=== PATIENT | female | born 2005 | race Two or more races ===

== ENCOUNTER 2025-09-25 23:46 | Observation (INO) | payer OTHER ==
[~2025-09-25] VITALS: Ht 162.6 cm; Wt 108.9 kg
--- NOTE | 2025-09-26 01:54 | DVH ---
EXAM: US OB ULTRASOUND COMP GTR 14 WKS HISTORY: No care/Term . TECHNIQUE: Multiple real-time grayscale images of the gravid uterus with duplex Doppler color flow and M-mode spectral analysis. COMPARISON: None available. FINDINGS: IUP single live fetus at 36 w and 4 d average ultrasound age (AUA) based on composite averages of the BPD, head circumference, abdominal circumference, and femur length Age based on (early ultrasound): Not available. MEASUREMENTS: BPD: 9.12 cm GA: 37 w 0 d HC: 32.73 cm GA: 37 w 1 d AC: 31.8 cm GA: 35 w 5 d FL: 7.12 cm GA: 36 w 3 d Estimated weight 2877 +/- 431 grams; 6 lbs 5 oz, 12th percentile. heart rate 134 beats per minute AZUCENA 8.4 cm, MVP 3.7 ANATOMIC SURVEY: Cephalic Presentation Anterior placenta without previa or abruption Cervix is not visualized and not assessed on this exam. 4-chamber heart, stomach, right kidney, left kidney, and bladder are within normal limits. [email or web address] IMPRESSION: 1. IUP single live fetus at 36 w 4 d AUA corresponding to an ADRIANE of 10/20/2025. 2. No abnormality detected.
[2025-09-26] MEDS ORDERED: PREN-96 PO (02:21)
[2025-09-26 02:24] LABS: Urine Protein, UAD TRACE (Negative)
[2025-09-26 02:26] LABS: Hematocrit 40.9 % (36.0-46.0); Hemoglobin 14.0 g/dL (12.2-16.2); Mean Corpuscular Hemoglobin 29.3 pg (28.0-32.0); Mean Corpuscular Volume 85.6 fL (80.0-100.0); Nucleated Red Blood Cells % 0.0 %
[2025-09-26 02:41] LABS: INR 0.89 (0.9-1.15); Partial Thromboplastin Time 24.8 SEC (24.5-34.5); Prothrombin Time 9.5 sec (9.3-11.8)
[2025-09-26 02:43] LABS: Amphetamine Screen, Urine Neg (NEGATIVE); Barbiturate Scree,Urine Neg (NEGATIVE); Benzodiazephine Screen, Urine Neg (NEGATIVE); Cannabinoid Screen, Urine Neg (NEGATIVE); Cocaine Screen, Urine Neg (NEGATIVE); Opiate Scree,Urine Neg (NEGATIVE); Phencyclidine Screen, Urine Neg (NEGATIVE)
[2025-09-26 02:46] LABS: Alanine Aminotransferase 14 U/L (7-40); Albumin 3.8 g/dL (3.2-4.8); Anion Gap 10 (5-15); BUN/Creatinine Ratio 12.2 (10.0-20.0); Blood Urea Nitrogen 10 mg/dL (9-23); Calcium 8.9 mg/dL (8.7-10.4); Carbon Dioxide 21 mmol/L (20-31); Glucose 97 mg/dL (74-106); Potassium 4.0 mmol/L (3.5-5.1); Sodium 138 mmol/L (136-145); Total Protein 6.7 g/dL (5.7-8.2)
[2025-09-26 02:51] LABS: Alkaline Phosphatase 118 U/L (46-116); Bilirubin, Total 0.2 mg/dL (0.2-1.0); Chloride 107 mmol/L (98-107)
--- NOTE | 2025-09-26 07:21 | DVHDS2 ---
Discharge Summary Date of Admission Sep 25, 2025 at 23:46 Date of Discharge: Sep 26, 2025 Admitting Diagnosis 39 + wks rule out labor Wounds: none Labs/Diagnostic Data: Laboratory Results Test 09/26/25 02:04 09/26/25 02:00 09/26/25 01:28 White Blood Count 9.9 10^3/uL (4.4-10.8) Red Blood Count 4.78 10^6/uL (4.0-5.20) Hemoglobin 14.0 g/dL (12.2-16.2) Hematocrit 40.9 % (36.0-46.0) Mean Corpuscular Volume 85.6 fL (80.0-100.0) Mean Corpuscular Hemoglobin 29.3 pg (28.0-32.0) Mean Corpuscular Hemoglobin Concent 34.3 g/dL (32.0-36.0) Red Cell Distribution Width 13.5 % (11.8-14.3) Platelet Count 288 10^3/uL (140-450) Mean Platelet Volume 8.4 fL (6.9-10.8) Neutrophils (%) (Auto) 62.2 % (37.0-80.0) Lymphocytes (%) (Auto) 29.6 % (10.0-50.0) Monocytes (%) (Auto) 6.9 % (0.0-12.0) Eosinophils (%) (Auto) 0.5 % (0.0-7.0) Basophils (%) (Auto) 0.8 % (0.0-2.0) Neutrophils # (Auto) 6.1 10 ^3/uL (1.6-8.6) Lymphocytes # (Auto) 2.9 10 ^3/uL (0.4-5.4) Monocytes # (Auto) 0.7 10 ^3/uL (0-1.3) Eosinophils # (Auto) 0.1 10 ^3/uL (0-0.8) Basophils # (Auto) 0.1 10 ^3/uL (0-0.2) Nucleated Red Blood Cells 0.0 % Prothrombin Time 9.5 sec (9.3-11.8) Prothrombin Time INR 0.89 (0.9-1.15) Activated Partial Thromboplast Time 24.8 SEC (24.5-34.5) Sodium Level 138 mmol/L (136-145) Potassium Level 4.0 mmol/L (3.5-5.1) Chloride Level 107 mmol/L (98-107) Carbon Dioxide Level 21 mmol/L (20-31) Anion Gap 10 (5-15) Blood Urea Nitrogen 10 mg/dL (9-23) Creatinine 0.82 mg/dL (0.550-1.02) Glomerular Filtration Rate Calc 104 mL/min (>90) BUN/Creatinine Ratio 12.2 (10.0-20.0) Serum Glucose 97 mg/dL (74-106) Hemoglobin A1c 5.9 % A1C (<5.7) Calcium Level 8.9 mg/dL (8.7-10.4) Total Bilirubin 0.2 mg/dL (0.2-1.0) Aspartate Amino Transferase (AST) 17 U/L (13-40) Alanine Aminotransferase (ALT) 14 U/L (7-40) Alkaline Phosphatase 118 U/L (46-116) Total Protein 6.7 g/dL (5.7-8.2) Albumin 3.8 g/dL (3.2-4.8) Treponema pallidum Antibody Non-reactive (Negative) Hepatitis B Surface Antigen Negative (Negative) Hepatitis C Antibody Negative (Negative) HIV (1&2) Antibody Negative (Negative) Rubella Antibody Positive Urine Color Yellow (Yellow) Urine Clarity Turbid (Clear) Urine pH 6.0 (5.0-9.0) Urine Specific Bath 1.030 (1.001-1.035) Urine Protein Trace (Negative) Urine Ketones Negative (Negative) Urine Blood Negative /uL (Negative) Urine Nitrite Negative (Negative) Urine Bilirubin Negative (Negative) Urine Urobilinogen Normal mg/dL (Negative) Urine Leukocyte Esterase Negative /uL (Negative) Urine RBC 2 /hpf (0 - 4) Urine Microscopic WBC 2 /HPF (0-5) Urine Squamous Epithelial Cells Few /hpf (<5) Urine Calcium Oxalate Crystals Mod (None Seen) Urine Bacteria None seen /hpf (None Seen) Urine Mucus Few (None Seen) Urine Glucose Normal mg/dL (Normal) Urine Opiates Screen Neg (NEGATIVE) Urine Fentanyl Screen Neg (NEGATIVE) Urine Barbiturates Screen Neg (NEGATIVE) Urine Phencyclidine Screen Neg (NEGATIVE) Urine Amphetamines Screen Neg (NEGATIVE) Urine Benzodiazepines Screen Neg (NEGATIVE) Urine Cocaine Screen Neg (NEGATIVE) Urine Cannabinoids Screen Neg (NEGATIVE) POC Glucose 105 mg/dl (70-106) Other Laboratory Tests 09/26/25 02:04 Brief Hx & Hospital Course: NST BPP Condition at Discharge: Good Final Diagnosis/Problems List 39 + weeks reasuring fht no labor Discharge Disposition: Home Discharge Instruct/Medications Diet: Regular Activity: No Restrictions, As Tolerated Follow Up/Referral: as scheduled , Kick counts labor precautions Scheduled Vit W/ Ferrous Fumara ( One Daily), 1 TAB PO DAILY, (Reported) Discharge Statement: "Patient was advised to return to the ER or call 911 if any headaches, dizziness, shortness of breath, chest pain, abdominal pain, bleeding, fevers, or worsening of medical condition. Patient was counseled about treatment plan, medications, possible side effects, patientverbalized understanding. All questions were answered to the best of my ability. This discharge took greater then 30 minutes in planning, reviewing documentation, counseling the patient, and discussing with other team members." ASSESSMENT ASSESSMENT Assessment Visit Coding OBGYN Date of Service: Sep 25, 2025 Billing Provider: DOMINIQUE ACOSTA DO [facility] [employer] Common Visit Codes: 68884-[id number] INP/OBS CARE(HIGH), 90745-QYV/OBS SAME DATE (LOW), 25555-UWN/OBS SAME DATE (MOD) [facility] [employer] Procedure Codes: 72726-38- NON-STRESS TEST DOMINIQUE ACOSTA DO Sep 26, 2025 07:21
[2025-09-28 16:07] LABS: Chlamydia Trachomatis, NAA Negative (Negative); Neisseria gonorrhoeae, NAA Negative (Negative)
== END 2025-09-26 02:35 | disposition home or self-care (01) ==
LOC: LDRP 23:46
PROVIDERS: ADMIT Obstetrics & Gynecology; ATTEND Obstetrics & Gynecology
DX: O62.9 Abnormality of forces of labor, unspecified (principal); R79.1 Abnormal coagulation profile; R53.1 Weakness; Z3A.39 39 weeks gestation of pregnancy; Z79.899 Other long term (current) drug therapy; Z98.890 Other specified postprocedural states
CPT/HCPCS: 36415; 59025; 76805; 80053; 80307; 81001; 81002; 82948; 82962; 83036; 85025; 85610; 85730; 86703; 86762; 86780; 86803; 86850; 86900; 86901; 87081; 87340; 87491; 87591; 94760; A4649; G0378